=== PATIENT | male | born 1985 | race Hispanic/Latino ===

== ENCOUNTER 2022-11-24 13:53 | Emergency (ER) | payer OTHER ==
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
[2022-11-24 14:59] LABS: Absolute Lymphocytes (CBC) 0.8 K/uL (0.7-4.9); Hematocrit 41.9 % (39.6-49.0); Lymphocytes % 9.5 % (15.3-44.8); MCV 87.9 fL (80-100); Platelets 140 thou/uL (152-406); RBC Red Blood Cell Count 4.76 M/uL (4.33-5.43)
[2022-11-24 15:11] LABS: Albumin 3.5 g/dL (3.4-5.0); Bilirubin Direct 0.2 mg/dL (0-0.2); Bilirubin Indirect, Calculated 0.3 mg/dL (0.2-0.8); Bilirubin Total 0.5 mg/dL (0.2-1.0); Potassium 3.5 mEq/L (3.5-5.1); Protein, Total 6.7 g/dL (6.4-8.2)
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
[2022-11-24 16:47] VITALS: TEMP 98.9
[2022-11-24 16:50] VITALS: BP 136/95; O2SAT 96
== END 2022-11-24 16:31 | disposition home or self-care (01) ==
LOC: ER 13:53
DX: S00.83XA Contusion of other part of head, initial encounter (principal)
CPT/HCPCS: 85025; 80048; 36415; 86900; 86850; 86901; 80076; 70450; 72125; 71260; 70486; 76377; 74177; 99285; Q9967